=== PATIENT | female | born 1995 | race Caucasian/White ===

== ENCOUNTER 2018-10-03 22:30 | Inpatient (IN) | payer SELFPAY ==
[~2018-10-03] VITALS: Ht 160 cm; Wt 0.3 kg
[~2018-10-03 22:30] MED LIST: ALBU90OI; AZIT250 PO; AZIT500 PO; BENZ100A PO; BIRTHCONTROL; CEFU500 PO; CEPH500 PO; CITA20 PO; CODACE30 PO; CRUTCH2 USE; CYCL10 PO; Cipro500 MG PO; DIPATR PO; DULO60 PO; FLUSAL1005 IH; FLUSAL2505; HYDACE5 PO; HYDACE7.5 PO; IBUP600 PO; Lamisil250 MG PO; MULVITMINE PO; NAPR500 PO; Norco 5-325 Ta1 EACH PO; ONDA4ODT MM; OXYACE5T PO; PRED5 PO; PROCODE120 PO; PROM25 PO; PROM25S PR; Percocet 5-3251 EACH PO; Prednisone20 MG PO; RXHYDACE PO; RXONDA4ODT MM; SERT25 PO; SULTRIDS PO; TRIA80TC TOP; Valium5 MG PO; [UNRECOGNIZED DRUG - OTHER]; [UNRECOGNIZED DRUG - OTHER]; [UNRECOGNIZED DRUG - REMARK]; [UNRECOGNIZED DRUG - REMARK]
[2018-10-04] MEDS ORDERED: EXPECTA PRENAT1 EACH (00:35)
[2018-10-04 01:56] LABS: BASOPHILS ABSOLUTE AUTO 0.02 K/mm3 (0.00-0.23); BASOPHILS PERCENT AUTO 0 % (0-2); EOSINOPHILS ABSOLUTE AUTO 0.09 K/mm3 (0.00-0.68); EOSINOPHILS PERCENT AUTO 1 % (0-6); Hematocrit 38.2 % (33.0-51.0); Hemoglobin 13.3 g/dL (11.5-16.0); IMMATURE GRAN ABSOLUTE AUTO 0.06 K/mm3 (0.00-0.10); IMMATURE GRAN PERCENT AUTO 1 % (0-1); LYMPHOCYTES ABSOLUTE AUTO 2.16 K/mm3 (0.84-5.20); LYMPHOCYTES PERCENT AUTO 20 % (21-46); MONOCYTES ABSOLUTE AUTO 0.87 K/mm3 (0.16-1.47); MONOCYTES PERCENT AUTO 8 % (4-13); Mean Corpuscular HGB Conc 34.8 g/dL (31.5-36.5); Mean Corpuscular Volume 92 fL (80-100); Mean Platelet Volume 10.2 fL (9.1-12.4); NEUTROPHILS ABSOLUTE AUTO 7.49 K/mm3 (1.96-9.15); NEUTROPHILS PERCENT AUTO 70 % (41-73); Platelet Count 205 K/mm3 (150-400); RDW Coefficient Variation 13.2 % (11.7-14.2); RDW Standard Deviation 44.3 fL (35.1-46.3); Red Blood Cell Count 4.15 M/mm3 (3.80-5.20); White Blood Cell Count 10.69 K/mm3 (4.00-11.30)
--- NOTE | 2018-10-04 18:00 | NUR ---
BROKEN BLOOD VESSELS IN LEFT EYE APPEARS TO BE WORSE, CONTACTS OUT WILL CONTINUE TO MONITOR
--- NOTE | 2018-10-04 22:04 | NUR ---
LEFT EYE HAS A COLLECTION OF BLOOD IN THE INNER CORNER TO MIDDLE AROUND IRIS, OUTER PORTION OF EYE REMAINS CLEAR/WHITE. NO CHANGE IN VISION OR PAIN. WILL CONTINUE TO MONITOR
[2018-10-05 06:02] LABS: BASOPHILS ABSOLUTE AUTO 0.04 K/mm3 (0.00-0.23); BASOPHILS PERCENT AUTO 0 % (0-2); EOSINOPHILS ABSOLUTE AUTO 0.11 K/mm3 (0.00-0.68); EOSINOPHILS PERCENT AUTO 1 % (0-6); Hematocrit 35.6 % (33.0-51.0); Hemoglobin 11.8 g/dL (11.5-16.0); IMMATURE GRAN ABSOLUTE AUTO 0.05 K/mm3 (0.00-0.10); IMMATURE GRAN PERCENT AUTO 1 % (0-1); LYMPHOCYTES ABSOLUTE AUTO 1.89 K/mm3 (0.84-5.20); LYMPHOCYTES PERCENT AUTO 18 % (21-46); MONOCYTES PERCENT AUTO 10 % (4-13); Mean Corpuscular HGB 31.5 pg (26.0-34.0); Mean Corpuscular HGB Conc 33.1 g/dL (31.5-36.5); Mean Platelet Volume 10.4 fL (9.1-12.4); NEUTROPHILS ABSOLUTE AUTO 7.59 K/mm3 (1.96-9.15); NEUTROPHILS PERCENT AUTO 70 % (41-73); Platelet Count 170 K/mm3 (150-400); RDW Coefficient Variation 13.6 % (11.7-14.2); RDW Standard Deviation 46.8 fL (35.1-46.3); Red Blood Cell Count 3.75 M/mm3 (3.80-5.20); White Blood Cell Count 10.78 K/mm3 (4.00-11.30)
[2018-10-05 06:07] LABS: Mean Corpuscular Volume 95 fL (80-100)
[2018-10-05] MEDS ORDERED: IBUP800 PO (11:28)
[2018-10-05] MEDS ORDERED: Percocet 5-3251 EACH PO (11:29)
== END 2018-10-05 18:00 | disposition home or self-care (01) | DRG 807 ==
LOC: BC 22:30 → OBS 22:30 → BC 22:33 → OBS 10-04 01:27 → BC 10-04 01:28
PROVIDERS: Nurse Practitioner Obstetrics & Gynecology; ADMIT Advanced Practice Midwife
PROC: 10E0XZZ Delivery of Products of Conception, External Approach (ICD-10-PCS; principal; 2018-10-04)
PROC: 10907ZC Drainage of Amniotic Fluid, Therapeutic from Products of Conception, Via Natural or Artificial Opening (ICD-10-PCS; 2018-10-04)
PROC: 0HQ9XZZ Repair Perineum Skin, External Approach (ICD-10-PCS; 2018-10-04)
DX: O99.824 Streptococcus B carrier state complicating childbirth (principal); Z37.0 Single live birth; Z3A.40 40 weeks gestation of pregnancy; O70.0 First degree perineal laceration during delivery; Z88.1 Allergy status to other antibiotic agents; Z88.0 Allergy status to penicillin; Z88.8 Allergy status to other drugs, medicaments and biological substances
CPT/HCPCS: 36415; 59025; 85025; 90471; 99213; J1885; J2210; J2550; J2590; J3010; J7120

== ENCOUNTER 2019-03-19 21:52 | Emergency (ER) | payer BC ==
[~2019-03-19] VITALS: Ht 162.6 cm; Wt 62.6 kg
[~2019-03-19 21:52] MED LIST changes: +EXPECTA PRENAT1 EACH; +IBUP800 PO
[2019-03-19] MEDS ORDERED: Cleocin HCl300 MG PO (23:39)
[2019-03-19] MEDS ORDERED: Percocet 5-3251 EACH PO (23:39)
[2019-03-19] MEDS ORDERED: SHAROBEL0.35 MG PO (23:51)
== END 2019-03-20 00:18 | disposition home or self-care (01) ==
LOC: ER 21:52
DX: N61.0 Mastitis without abscess (principal); F32.9 Major depressive disorder, single episode, unspecified; Z88.0 Allergy status to penicillin; Z88.1 Allergy status to other antibiotic agents; Z88.8 Allergy status to other drugs, medicaments and biological substances; Z88.5 Allergy status to narcotic agent
CPT/HCPCS: 96372; 99283-25; A9270; J1170; J2550

== ENCOUNTER → 2020-03-17 | Outpatient (CLI) | payer OTHER ==
[~2020-03-17] MED LIST changes: +Cleocin HCl300 MG PO; +SHAROBEL0.35 MG PO
== END | disposition home or self-care (01) ==
LOC: LAB 10:30 → LAB SHORT 10:30
DX: J02.9 Acute pharyngitis, unspecified (principal)
CPT/HCPCS: 87081

== ENCOUNTER 2021-01-29 07:15 | Inpatient (IN) | payer BC, OTHER ==
[~2021-01-29] VITALS: Ht 165.1 cm; Wt 78.0 kg
[2021-01-29 11:35] LABS: BASOPHILS ABSOLUTE AUTO 0.03 K/mm3 (0.00-0.23); BASOPHILS PERCENT AUTO 0 % (0-2); EOSINOPHILS ABSOLUTE AUTO 0.03 K/mm3 (0.00-0.68); EOSINOPHILS PERCENT AUTO 0 % (0-6); Hemoglobin 11.9 g/dL (11.5-16.0); IMMATURE GRAN ABSOLUTE AUTO 0.06 K/mm3 (0.00-0.10); IMMATURE GRAN PERCENT AUTO 1 % (0-1); LYMPHOCYTES ABSOLUTE AUTO 0.97 K/mm3 (0.84-5.20); LYMPHOCYTES PERCENT AUTO 8 % (21-46); MONOCYTES ABSOLUTE AUTO 1.02 K/mm3 (0.16-1.47); MONOCYTES PERCENT AUTO 8 % (4-13); Mean Corpuscular HGB 30.7 pg (26.0-34.0); Mean Corpuscular HGB Conc 33.1 g/dL (31.5-36.5); Mean Corpuscular Volume 93 fL (80-100); Mean Platelet Volume 11.3 fL (9.1-12.4); NEUTROPHILS ABSOLUTE AUTO 10.21 K/mm3 (1.96-9.15); NEUTROPHILS PERCENT AUTO 83 % (41-73); Platelet Count 181 K/mm3 (150-400); RDW Standard Deviation 46.5 fL (35.1-46.3); Red Blood Cell Count 3.87 M/mm3 (3.80-5.20); White Blood Cell Count 12.32 K/mm3 (4.00-11.30)
[2021-01-30 05:30] LABS: BASOPHILS ABSOLUTE AUTO 0.02 K/mm3 (0.00-0.23); BASOPHILS PERCENT AUTO 0 % (0-2); EOSINOPHILS ABSOLUTE AUTO 0.11 K/mm3 (0.00-0.68); EOSINOPHILS PERCENT AUTO 1 % (0-6); Hematocrit 33.7 % (33.0-51.0); Hemoglobin 11.4 g/dL (11.5-16.0); IMMATURE GRAN ABSOLUTE AUTO 0.04 K/mm3 (0.00-0.10); IMMATURE GRAN PERCENT AUTO 0 % (0-1); LYMPHOCYTES ABSOLUTE AUTO 0.85 K/mm3 (0.84-5.20); LYMPHOCYTES PERCENT AUTO 9 % (21-46); MONOCYTES ABSOLUTE AUTO 0.76 K/mm3 (0.16-1.47); MONOCYTES PERCENT AUTO 8 % (4-13); Mean Corpuscular HGB 31.3 pg (26.0-34.0); Mean Corpuscular HGB Conc 33.8 g/dL (31.5-36.5); Mean Corpuscular Volume 93 fL (80-100); Mean Platelet Volume 10.4 fL (9.1-12.4); NEUTROPHILS ABSOLUTE AUTO 7.78 K/mm3 (1.96-9.15); NEUTROPHILS PERCENT AUTO 81 % (41-73); Platelet Count 171 K/mm3 (150-400); RDW Coefficient Variation 14.2 % (11.7-14.2); RDW Standard Deviation 47.7 fL (35.1-46.3); Red Blood Cell Count 3.64 M/mm3 (3.80-5.20); White Blood Cell Count 9.56 K/mm3 (4.00-11.30)
[2021-01-30 05:53] LABS: Alanine Aminotransfer (ALT/SGP 10 U/L (12-78); Albumin, Blood 2.3 g/dL (3.4-5.0); Albumin/Globulin Ratio 0.6 (0.8-1.8); Alk Phos 111 U/L (50-136); Anion Gap 5 mmol/L (6-16); Aspartate Aminotrans (AST/SGOT 6 U/L (12-37); Bilirubin, Total 0.8 mg/dL (0.1-1.0); Blood Urea Nitrogen 7 mg/dL (8-24); Bun/Creatinine Ratio 14.3 (12.0-20.0); CO2, Blood 25 mmol/L (21-32); Chloride, Blood 107 mmol/L (98-108); Creatinine, Blood 0.49 mg/dL (0.40-1.00); Globulin, Blood 4.1 g/dL (2.2-4.0); Glomerular Filtration Rate >60 (60-); Glucose, Blood 87 mg/dL (70-99); Potassium, Blood 3.3 mmol/L (3.5-5.5); Sodium, Blood 137 mmol/L (136-145); Total Protein, Blood 6.4 g/dL (6.4-8.2)
--- NOTE | 2021-01-30 13:37 | NUR ---
VOMITING BIOX DROPPING TO 86 ON 10L O2 MASK
--- NOTE | 2021-01-30 13:52 | NUR ---
VOMITING 100 CC BILE, CNM NOTIFIED AND DR ARANGO SHE WILL BE DOWN IN HOUR TO SEE PATIENT
--- NOTE | 2021-01-30 15:07 | NUR ---
DR ARANGO HERE PATIENTVOMITING BUT NOTHING COMING UP,
--- NOTE | 2021-01-30 15:08 | NUR ---
VOIDING WITH VOMITING
--- NOTE | 2021-01-30 15:37 | NUR ---
C/O PAIN AT IV SITE, POTASSIUM STOPPED CALLED FOR POWER GLIDE, CALLED AGAIN TO REP, CARE FOR BREATHING TREATMENT
--- NOTE | 2021-01-30 16:54 | NUR ---
POWER GLIDE DONE
--- NOTE | 2021-01-30 16:54 | NUR ---
UP VOIDED WALKED TO BATHROOM WITH ASSISTANCE LINEN CHANGED
[2021-01-31 05:19] LABS: Hematocrit 31.1 % (33.0-51.0); Hemoglobin 10.6 g/dL (11.5-16.0); Mean Corpuscular HGB Conc 34.1 g/dL (31.5-36.5); Mean Corpuscular Volume 91 fL (80-100); Mean Platelet Volume 10.4 fL (9.1-12.4); Platelet Count 184 K/mm3 (150-400); RDW Standard Deviation 46.4 fL (35.1-46.3); Red Blood Cell Count 3.42 M/mm3 (3.80-5.20); White Blood Cell Count 12.17 K/mm3 (4.00-11.30)
[2021-01-31] MEDS ORDERED: PRENATAL TABLE1 EAC2 PO (16:33)
[2021-01-31] MEDS ORDERED: IBUP800 PO (16:33)
[2021-01-31] MEDS ORDERED: DOCU100 PO (16:34)
--- NOTE | 2021-02-01 11:25 | NUR ---
instructions given written and verbal dc instructions. verbalizes understanding. will follow up here at [facility] on wednesday at 1100am with ena barragan. will also follow up with marcelle within 2 weeks or sooner if needed. discharged home with and . [facility] ghassan grullon [facility].
[2021-02-05] MEDS ORDERED: CEPH500 PO (13:00)
[2021-02-05] MEDS ORDERED: HYDR1TAB94 PO (13:00)
== END 2021-02-01 11:24 | disposition home or self-care (01) | DRG 805 ==
LOC: OBS 07:15 → BC 07:16 → OBS 10:29 → BC 23:41
PROVIDERS: Internal Medicine; ADMIT Nurse Practitioner Obstetrics & Gynecology
PROC: 8E0ZXY6 Isolation (ICD-10-PCS; 2021-01-29)
PROC: 10E0XZZ Delivery of Products of Conception, External Approach (ICD-10-PCS; principal; 2021-01-30)
PROC: 10907ZC Drainage of Amniotic Fluid, Therapeutic from Products of Conception, Via Natural or Artificial Opening (ICD-10-PCS; 2021-01-30)
PROC: 3E033VJ Introduction of Other Hormone into Peripheral Vein, Percutaneous Approach (ICD-10-PCS; 2021-01-30)
PROC: 3E0333Z Introduction of Anti-inflammatory into Peripheral Vein, Percutaneous Approach (ICD-10-PCS; 2021-01-30)
PROC: 3E0R3BZ Introduction of Anesthetic Agent into Spinal Canal, Percutaneous Approach (ICD-10-PCS; 2021-01-30)
PROC: 00HU33Z Insertion of Infusion Device into Spinal Canal, Percutaneous Approach (ICD-10-PCS; 2021-01-30)
DX: O98.52 Other viral diseases complicating childbirth (principal); U07.1 COVID-19; Z37.0 Single live birth; Z3A.38 38 weeks gestation of pregnancy; Z88.0 Allergy status to penicillin; Z88.1 Allergy status to other antibiotic agents; Z88.8 Allergy status to other drugs, medicaments and biological substances; O99.824 Streptococcus B carrier state complicating childbirth
CPT/HCPCS: 36415; 51702; 59025; 71045; 80053; 85025; 85027; 85379; 85651; 86850; 86900; 86901; 93970; 94640; 94760; A9270; J1100; J2001; J2210; J2550; J2590; J3010; J3480; J7030; J7120

== ENCOUNTER → 2023-09-07 | Outpatient (CLI) | payer BC ==
[~2023-09-07] MED LIST changes: +DOCU100 PO; +HYDR1TAB94 PO; +PRENATAL TABLE1 EAC2 PO
== END ==
LOC: LAB SHORT 08:00 → LAB 08:00
DX: R30.0 Dysuria (principal)
CPT/HCPCS: 87077; 87086; 87186